=== PATIENT | male | born 1965 | race Caucasian/White ===

== ENCOUNTER 2020-11-05 07:49 | Emergency (ER) | payer MEDICARE, OTHER ==
[~2020-11-05] VITALS: Ht 188 cm; Wt 108.9 kg
[2020-11-05 08:12] LABS: BASOPHILS ABSOLUTE AUTO 0.04 K/mm3 (0.00-0.23); BASOPHILS PERCENT AUTO 1 % (0-2); EOSINOPHILS ABSOLUTE AUTO 0.04 K/mm3 (0.00-0.68); EOSINOPHILS PERCENT AUTO 1 % (0-6); Hemoglobin 14.3 g/dL (13.5-17.5); IMMATURE GRAN ABSOLUTE AUTO 0.06 K/mm3 (0.00-0.10); IMMATURE GRAN PERCENT AUTO 1 % (0-1); LYMPHOCYTES ABSOLUTE AUTO 1.38 K/mm3 (0.84-5.20); LYMPHOCYTES PERCENT AUTO 24 % (21-46); MONOCYTES ABSOLUTE AUTO 0.69 K/mm3 (0.16-1.47); MONOCYTES PERCENT AUTO 12 % (4-13); Mean Corpuscular HGB 32.5 pg (26.0-34.0); Mean Corpuscular HGB Conc 32.5 g/dL (31.5-36.5); Mean Corpuscular Volume 100 fL (80-100); Mean Platelet Volume 10.2 fL (9.1-12.4); NEUTROPHILS ABSOLUTE AUTO 3.51 K/mm3 (1.96-9.15); NEUTROPHILS PERCENT AUTO 61 % (41-73); Platelet Count 173 K/mm3 (150-400); RDW Coefficient Variation 13.2 % (11.7-14.2); RDW Standard Deviation 49.3 fL (35.1-46.3); White Blood Cell Count 5.72 K/mm3 (4.00-11.30)
[2020-11-05 08:24] LABS: Prothrombin Time Results 10.7 Sec (9.7-11.5)
[2020-11-05 08:29] LABS: Alanine Aminotransfer (ALT/SGP 39 U/L (12-78); Albumin, Blood 3.5 g/dL (3.4-5.0); Alk Phos 96 U/L (50-136); Anion Gap 3 mmol/L (6-16); Aspartate Aminotrans (AST/SGOT 27 U/L (12-37); Bilirubin, Total 0.6 mg/dL (0.1-1.0); Blood Urea Nitrogen 14 mg/dL (8-24); Bun/Creatinine Ratio 19.9 (12.0-20.0); CO2, Blood 30 mmol/L (21-32); Calcium, Blood 8.6 mg/dL (8.5-10.1); Chloride, Blood 110 mmol/L (98-108); Globulin, Blood 3.5 g/dL (2.2-4.0); Glomerular Filtration Rate >60 (60-); Glucose, Blood 123 mg/dL (70-99); Potassium, Blood 3.9 mmol/L (3.5-5.5); Sodium, Blood 143 mmol/L (136-145)
[2020-11-05] MEDS ORDERED: Amiodarone HCl200 MG PO (08:36)
[2020-11-05] MEDS ORDERED: ATOR80 PO (08:37)
[2020-11-05] MEDS ORDERED: AMLO10 PO (08:37)
[2020-11-05] MEDS ORDERED: CARV25 PO (08:37)
[2020-11-05] MEDS ORDERED: Aspir 8181 MG PO (08:37)
[2020-11-05] MEDS ORDERED: LISI20 PO (08:38)
[2020-11-05] MEDS ORDERED: GABA100 PO (08:38)
[2020-11-05] MEDS ORDERED: FURO20 PO (08:38)
[2020-11-05] MEDS ORDERED: ELIQUIS5 MG PO (08:44)
[2020-11-05] MEDS ORDERED: TRULICITY0.75 MG/01 (08:44)
[2020-11-05] MEDS ORDERED: ALBU2.5V5 INH (08:45)
[2020-11-05] MEDS ORDERED: FLUT1DIS5 INH (08:45)
[2020-11-05 09:17] LABS: Magnesium, Blood 2.1 mg/dL (1.6-2.4); Troponin I <0.015 ng/mL (0.000-0.040)
[2020-11-05 11:06] LABS: U Amphetamine Screen Not Detected; U Barbituate Screen Not Detected; U Benzodiazapine Screen Not Detected; U Buprenorphine Screen Not Detected; U Cannabinoids Screen DETECTED; U Cocaine Screen Not Detected; U Methadone Screen Not Detected; U Methamphetamine Screen Not Detected; U Opiates Screen Not Detected; U Oxycodone Screen Not Detected; U Phencyclidine Screen Not Detected; U Propoxyphene Screen Not Detected
== END 2020-11-05 10:50 | disposition home or self-care (01) ==
LOC: ER 07:49
PROVIDERS: Emergency Medicine
DX: S01.01XA Laceration without foreign body of scalp, initial encounter (principal); I69.344 Monoplegia of lower limb following cerebral infarction affecting left non-dominant side; Z79.82 Long term (current) use of aspirin; Z79.899 Other long term (current) drug therapy; Z79.01 Long term (current) use of anticoagulants; Z88.5 Allergy status to narcotic agent; W18.30XA Fall on same level, unspecified, initial encounter
CPT/HCPCS: 12004; 70450; 72125; 80053; 83735; 84484; 85025; 85610; 93005; 93010; 99284-25; G0480; L0160

== ENCOUNTER 2021-04-26 07:57 | Day surgery (SDC) | payer MEDICARE, OTHER ==
[~2021-04-26] VITALS: Ht 188 cm; Wt 112.5 kg
[~2021-04-26 07:57] MED LIST: ALBU2.5V5 INH; AMLO10 PO; ATOR80 PO; Amiodarone HCl200 MG PO; Aspir 8181 MG PO; CARV25 PO; ELIQUIS5 MG PO; FLUT1DIS5 INH; FURO20 PO; GABA100 PO; LISI20 PO; TRULICITY0.75 MG/01
--- NOTE | 2021-04-26 12:40 | NUR ---
PATIENT RETURNED FROM THE [facility]ATHLAB. PLACED ON THE MONITOR. CALL LIGHT IN REACH AND SIDE RAILS UP X TWO. ACCESS SITES TO THE RIGHT FEMORAL (ANGIOSEAL), RIGHT RADIAL (TR BAND) AND LEFT FOOT (ADAM PAD/TEGADERM). ALL SITES ARE SOFT, NO HEMATOMA, NO BLEEDING. PULSES DP/PT +1. ASSISTED WITH URINAL AND VOIDED 250 ML OF CLEAR YELLOW URINE. NO PAIN NOTED FROM THE PATIENT.
--- NOTE | 2021-04-26 13:10 | NUR ---
CALLED THE MOTHER MIRTA, OF THE PATIENT AND GAVE HER AN UPDATE ON THE EVENTS OF THE PROCEDURE AND PENDING RECOVERY TIME. ALL QUESTIONS ANSWERED AND PATIENT SPOKE TO HIS MOTHER ALSO.
--- NOTE | 2021-04-26 13:39 | NUR ---
BEGAN RELEASING AIR FROM THE TR BAND. TWO BANDS IN PLACE TO THE RIGHT WRIST.
--- NOTE | 2021-04-26 13:59 | NUR ---
PATIENT TURNED SELF TO FACILITATE EATING LUNCH TRAY. CONTINUE TO TAKE AIR OUT OF THE TR BAND. RFA AND LEFT PEDAL SITE DRESSING CDI, NO HEMATOMA, NO BLEEDING.
--- NOTE | 2021-04-26 14:21 | NUR ---
TR BANDS FLAT, BAND REMIAN IN PLACE. NO BLEEDING NOTED. RIGHT GROIN AND LEFT PEDAL SITES UNCHANGED.
--- NOTE | 2021-04-26 14:39 | NUR ---
TR BAND X TWO REMOVED AND SITE CLEANED. CLOTH DOT X TWO APPLIED. REPLACED WHITE BOARD AND TEACHING DONE ABOUT NOT USING THE RIGHT WRIST FOR LIFTING, BENDING.
--- NOTE | 2021-04-26 14:47 | NUR ---
REVIEWED ALL DISCHARGE INSTRUCTIONS AND PATIENT VERBALIZED UNDERSTANDING AND ALL QUESTIONS ANSWERED. COPIES GIVEN TO THE PATIENT. CALLED FOR RIDE TO BE HERE AT 1530.
--- NOTE | 2021-04-26 15:05 | NUR ---
PATIENT UP OOB AND DRESSING. TO THE RESTROOM. VOIDED. RIGHT GROIN, LEFT FOOT AND RIGHT RADIAL SITES ALL CHECKED. UNCHANGED. DRESSING CDI. NO BLEEDING NO HEMATOMA.
--- NOTE | 2021-04-26 15:14 | NUR ---
PATIENT HAS NO FURTHER QUESTIONS AFTER REVEIWING DISCHARGE INSTRUCTIONS. NO PAIN. DISCHARGED HOME VIA WHEELCHAIR TO PRIVATE VEHICLE WITH MOTHER DRIVING.
== END 2021-04-26 15:15 | disposition home or self-care (01) ==
LOC: MHTC 07:57
DX: I70.211 Atherosclerosis of native arteries of extremities with intermittent claudication, right leg (principal); I72.9 Aneurysm of unspecified site
CPT/HCPCS: 37236; 37252; 75625; 75710; 75716; 75774; 76937; 99152; 99153; C1725; C1769; C1874; C1887; C1894; J2250; J3010; J7030; J7050; Q9967

== ENCOUNTER 2022-06-27 09:11 | Day surgery (SDC) | payer OTHER ==
[~2022-06-27] VITALS: Wt 99.6 kg
[2022-06-27 10:01] LABS: BASOPHILS ABSOLUTE AUTO 0.06 K/mm3 (0.00-0.23); BASOPHILS PERCENT AUTO 1 % (0-2); EOSINOPHILS ABSOLUTE AUTO 0.06 K/mm3 (0.00-0.68); EOSINOPHILS PERCENT AUTO 1 % (0-6); Hematocrit 44.3 % (37.0-53.0); Hemoglobin 14.8 g/dL (13.5-17.5); IMMATURE GRAN ABSOLUTE AUTO 0.04 K/mm3 (0.00-0.10); IMMATURE GRAN PERCENT AUTO 0 % (0-1); LYMPHOCYTES ABSOLUTE AUTO 2.69 K/mm3 (0.84-5.20); LYMPHOCYTES PERCENT AUTO 28 % (21-46); MONOCYTES ABSOLUTE AUTO 0.83 K/mm3 (0.16-1.47); MONOCYTES PERCENT AUTO 9 % (4-13); Mean Corpuscular HGB 30.3 pg (26.0-34.0); Mean Corpuscular HGB Conc 33.4 g/dL (31.5-36.5); Mean Corpuscular Volume 91 fL (80-100); Mean Platelet Volume 10.8 fL (9.1-12.4); NEUTROPHILS ABSOLUTE AUTO 6.06 K/mm3 (1.96-9.15); NEUTROPHILS PERCENT AUTO 62 % (41-73); Platelet Count 155 K/mm3 (150-400); RDW Standard Deviation 49.7 fL (35.1-46.3); Red Blood Cell Count 4.88 M/mm3 (4.30-5.90); White Blood Cell Count 9.74 K/mm3 (4.00-11.30)
[2022-06-27 10:20] LABS: Bun/Creatinine Ratio 20.3 (12.0-20.0); Calcium, Blood 9.1 mg/dL (8.5-10.1); Creatinine, Blood 0.64 mg/dL (0.60-1.20); Potassium, Blood 3.9 mmol/L (3.5-5.5)
[2022-06-27] MEDS ORDERED: Norco 5-325 Ta1 EACH (10:20)
[2022-06-27] MEDS ORDERED: TAMS.4ER (10:20)
[2022-06-27 10:23] LABS: International Normalized Ratio 1.04; Prothrombin Time Results 10.9 Sec (9.7-11.5)
--- NOTE | 2022-06-27 13:30 | NUR ---
Patient arrived from [facility] on ICU bed and monitored. He is alert and oriented and is able to communicate his needs. TRUDIEW. He has sheath to left foot and infusion catheter and will be starting TPa in infusion catheter. He has used urinal independently and was able to eat lunch without minimal assistance from mother whom just arrived. He states no pain or need for intervention. He has 24ga IV to LH flushed and Sl. LE pulse palpable to right foot and doppler to right foot.
--- NOTE | 2022-06-27 15:30 | NUR ---
Patient sitting up in bed. Dr Wynn by to assess and called mother. Started TPA at 2 mg/hr and Heparin at 10 ml/hr. Patient on RA and sats >90%.. Left foot acces looks C/D/I and no bleeding or swelling. Continues to have positive pules to LE's bilaterally. Had Heparin and TPa verified by Nikos COLES
--- NOTE | 2022-06-27 18:00 | NUR ---
Patient continues to rest after dinner which he ate over half of meal. He remains on Ra and sats >90%. His left foot site has small amount of weeping from. It continues to in TPA at 2 mg/hr for two more hours and Heparin infusing at 500 units /hr. He remains alert and uses urinal independnetly and calls appropriate.
--- NOTE | 2022-06-27 19:15 | NUR ---
ASSUMED CARE OF PT @1900. PT IS A&O X4. PLEASANT AND COOPERATIVE. TPA INFUSING @ 2MG/HR, HEPARIN 5U/KG/HR. L FOOT SHEATH BANDAGE INTACT. HR 60'S. SBP 120'S. RR 13. SPO2 >92%. 22GA PRESENT IN L WRIST.
--- NOTE | 2022-06-28 05:53 | NUR ---
SUMMARY: NO ACUTE EVENTS OVERNIGHT. L FOOT SHEATH/INFUSION CATHETER PATENT. HEPARIN 5U/KG/HR, TPA 1MG/HR. 22GA LH SALINE LOCK. PT PAIN CONTROLLED W/PRN NORCO AND DILAUDID. HR 60'S. SBP 130-150'S. RR 16. SPO2 >92% ON RA. PT USES URINAL INDEPENDENTLY. PT USES CALL LIGHT APPROPRIATELY.
--- NOTE | 2022-06-28 08:00 | NUR ---
Received report from Yadira COLES. Patient is awake at time of report. He is on RA and sats >90%. He is alert and oriented and is able to commmunicate his needs. He calls appropriately and uses urinal as needed. He has left foot access and has sheath and infusion catheter in place. Heparin infusing 500 units/hr into sheath and TPA into infusion catheter at 1 mg/hr. He has denied any pain this shif as he was medicated a little while ago.
--- NOTE | 2022-06-28 11:55 | NUR ---
Patient resting in room with family at bedside playing on phone. He tolerated am meds but stated no hungry for breakfast. Awaiting time for followup procedure. TPA and heparin continues to infuse into left and will until procedure. Called Dr Danielle and want to continue until procedure. Patient will remain NPO until post procedure. VSS.
--- NOTE | 2022-06-28 13:38 | NUR ---
Patient is going to chemical laboratory chief for follow up left extremity. He remains on RA and sat s>90%. He is alert and oriented and is able to communicate his needs. RLE palpable pulse and left is doppler only and + pulses on both. Mother at bedside when leaving.
--- NOTE | 2022-06-28 15:40 | NUR ---
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
--- NOTE | 2022-06-28 16:36 | NUR ---
Patient back from [facility] lab technician and received report from Dr Danielle. Patient will be goinfg home after an hour of recovery. Educated mother abot left foot siteand what to do if bleeding occurs.Left foot site stable and has small opsite with no bleeding or swelling. Wi give patient 10 mg Eliquis before discharge. Dr Danielle wrote for [place] and mother went to get prior to discharge. Patient currently resting on RA and sats >90%. VSS,
--- NOTE | 2022-06-28 18:19 | NUR ---
Patient discharged home. Reviewed discharge instructions and precautions with patient and mother and what to do if bleeding occurs. They both returned understanding of information. Script for pain was given to mother and was filled. Reviewed all meds with mother and what he has had todat. Gave eliquis per dr Danielle prior to leaving. Rechecked left foot site and was soft and palpable and dressing C/D/I. He was taken to enterance via wheelchair with all personal belongings and helpped in car and went home POV.
== END 2022-06-28 18:00 | disposition home or self-care (01) ==
LOC: ICUW 09:11 → MHTC 09:11 → ICUW 12:53 → MHTC 06-28 18:00
PROVIDERS: Radiology Diagnostic Radiology
DX: E11.51 Type 2 diabetes mellitus with diabetic peripheral angiopathy without gangrene (principal); I73.9 Peripheral vascular disease, unspecified; I72.4 Aneurysm of artery of lower extremity; Z88.5 Allergy status to narcotic agent; Z88.8 Allergy status to other drugs, medicaments and biological substances; I50.20 Unspecified systolic (congestive) heart failure; I11.0 Hypertensive heart disease with heart failure; E11.42 Type 2 diabetes mellitus with diabetic polyneuropathy; J44.9 Chronic obstructive pulmonary disease, unspecified; E78.5 Hyperlipidemia, unspecified; N40.0 Benign prostatic hyperplasia without lower urinary tract symptoms
CPT/HCPCS: 36200; 36415; 37211; 37214; 75625; 75716; 75774; 76937; 80048; 82947; 85018; 85025; 85384; 85610; 94640; 94664; 94760; 94762; 99152; 99153; A9270; C1725; C1757; C1769; C1874; C1887; C1894; C9765; J1170; J1644; J2250; J2997; J3010; J7030; J7040; Q9967

== ENCOUNTER 2023-04-28 18:31 | Emergency (ER) | payer OTHER ==
[~2023-04-28] VITALS: Ht 185.4 cm; Wt 104.3 kg
[~2023-04-28 18:31] MED LIST changes: +Norco 5-325 Ta1 EACH; +TAMS.4ER
[2023-04-28 19:13] VITALS: BP 145/88
[2023-04-28] MEDS ORDERED: METPRE4DP PO (21:12)
[2023-04-28] MEDS ORDERED: HYDR1TAB94 PO (21:12)
[2023-04-30] MEDS ORDERED: METPRE4DP PO (14:33)
[2023-04-30] MEDS ORDERED: Norco 5-325 Ta1 EACH PO (14:33)
== END 2023-04-28 21:20 | disposition home or self-care (01) ==
LOC: ER 18:31
DX: M54.12 Radiculopathy, cervical region (principal); Z88.8 Allergy status to other drugs, medicaments and biological substances; Z88.5 Allergy status to narcotic agent; Z79.899 Other long term (current) drug therapy; Z79.891 Long term (current) use of opiate analgesic; E11.42 Type 2 diabetes mellitus with diabetic polyneuropathy; J44.9 Chronic obstructive pulmonary disease, unspecified; I10 Essential (primary) hypertension; Z87.891 Personal history of nicotine dependence
CPT/HCPCS: 72040; 96372; 99283-25; J1100; J1170; J1885

== ENCOUNTER 2024-12-10 15:55 | Emergency (ER) | payer MEDICARE ==
[~2024-12-10] VITALS: Ht 188 cm; Wt 113.4 kg
[~2024-12-10 15:55] MED LIST changes: +HYDR1TAB94 PO; +METPRE4DP PO; +Norco 5-325 Ta1 EACH PO
[2024-12-10 17:05] LABS: Albumin, Blood 3.5 g/dL (3.4-5.0); Albumin/Globulin Ratio 1.1 (0.8-1.8); Bun/Creatinine Ratio 18.8 (12.0-20.0); Calcium, Blood 8.7 mg/dL (8.5-10.1); Creatinine, Blood 0.69 mg/dL (0.60-1.20); Globulin, Blood 3.2 g/dL (2.2-4.0); Total Protein, Blood 6.7 g/dL (6.4-8.2)
[2024-12-10 17:14] LABS: Influenza A, PCR NEGATIVE (NEGATIVE); Influenza B, PCR NEGATIVE (NEGATIVE); Resp Syncytial Virus, PCR NEGATIVE (NEGATIVE); SARS-Cov-2 (COVID-19) PCR, MMC NEGATIVE (NEGATIVE)
[2024-12-10 19:23] LABS: BASOPHILS ABSOLUTE AUTO 0.04 K/mm3 (0.00-0.23); BASOPHILS PERCENT AUTO 0 % (0-2); EOSINOPHILS ABSOLUTE AUTO 0.05 K/mm3 (0.00-0.68); EOSINOPHILS PERCENT AUTO 1 % (0-6); Hematocrit 47.1 % (37.0-53.0); Hemoglobin 15.9 g/dL (13.5-17.5); IMMATURE GRAN ABSOLUTE AUTO 0.04 K/mm3 (0.00-0.10); IMMATURE GRAN PERCENT AUTO 0 % (0-1); LYMPHOCYTES ABSOLUTE AUTO 2.86 K/mm3 (0.84-5.20); LYMPHOCYTES PERCENT AUTO 28 % (21-46); MONOCYTES PERCENT AUTO 10 % (4-13); Mean Corpuscular HGB 32.1 pg (26.0-34.0); Mean Corpuscular HGB Conc 33.8 g/dL (31.5-36.5); Mean Corpuscular Volume 95 fL (80-100); Mean Platelet Volume 10.7 fL (9.1-12.4); NEUTROPHILS ABSOLUTE AUTO 6.22 K/mm3 (1.96-9.15); NEUTROPHILS PERCENT AUTO 61 % (41-73); Platelet Count 145 K/mm3 (150-400); RDW Coefficient Variation 13.5 % (11.7-14.2); RDW Standard Deviation 47.9 fL (35.1-46.3); Red Blood Cell Count 4.95 M/mm3 (4.30-5.90); White Blood Cell Count 10.21 K/mm3 (4.00-11.30)
[2024-12-10] MEDS ORDERED: Flonase 0.05% N16 GM (20:06)
[2024-12-10 20:14] VITALS: BP 122/76
== END 2024-12-10 20:13 | disposition home or self-care (01) ==
LOC: ER 15:55
PROVIDERS: Student in an Organized Health Care Education/Training Program
DX: R09.81 Nasal congestion (principal); I69.354 Hemiplegia and hemiparesis following cerebral infarction affecting left non-dominant side; I10 Essential (primary) hypertension; J44.9 Chronic obstructive pulmonary disease, unspecified; E11.40 Type 2 diabetes mellitus with diabetic neuropathy, unspecified; E78.5 Hyperlipidemia, unspecified; I42.9 Cardiomyopathy, unspecified; Z88.8 Allergy status to other drugs, medicaments and biological substances; Z88.5 Allergy status to narcotic agent; Z79.01 Long term (current) use of anticoagulants; Z79.85 Long-term (current) use of injectable non-insulin antidiabetic drugs; Z79.51 Long term (current) use of inhaled steroids; Z87.891 Personal history of nicotine dependence; Z79.899 Other long term (current) drug therapy
CPT/HCPCS: 0241U; 71046; 80053; 84484; 85025; 93005; 93010; 99284-25